=== PATIENT | male | born 1965 | race Caucasian/White ===

== ENCOUNTER 2017-03-12 03:05 | Inpatient (IN) | payer MEDICAID ==
[2017-03-12] VITALS (7 sets, daily range): BP systolic 148–175; BP diastolic 76–97; PULSE 95–120; RESP 18–22; TEMP 98.3–98.4; O2SAT 94–97
[~2017-03-12] VITALS: Ht 177.8 cm; Wt 94.2 kg
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
[2017-03-12] MEDS ORDERED: LORazepam 2 MG/ML VIAL IM ONE (03:30)
[2017-03-12] MEDS ORDERED: LORazepam 2 MG/ML VIAL IV PUSH ONE (03:30)
[2017-03-12 03:34] LABS: AUTOMATED NEUTROPHIL # 10.2 TH/MM3 (1.8-7.7); BASOPHIL % 0.2 % (0.0-2.0); EOSINOPHIL % 0.4 % (0.0-4.0); HEMATOCRIT 45.8 % (39.0-51.0); HEMO FLAGS DIFF FINAL; LYMPH % 11.3 % (9.0-44.0); LYMPHOCYTE # 1.4 TH/MM3 (1.0-4.8); MEAN CORPUSCULAR HEMOGLOBIN 29.8 PG (27.0-34.0); MEAN CORPUSCULAR HGB CONC 33.8 % (32.0-36.0); MONO % 5.1 % (0.0-8.0); PLATELET COUNT 240 TH/MM3 (150-450); RED CELL DISTRIBUTION WIDTH 13.1 % (11.6-17.2); WHITE BLOOD COUNT 12.3 TH/MM3 (4.0-11.0)
[2017-03-12 03:49] LABS: ALT (GPT) 21 U/L (12-78); ANION GAP 11 MEQ/L (5-15); AST (GOT) 17 U/L (15-37); BICARBONATE 21.4 MEQ/L (21.0-32.0); BLOOD UREA NITROGEN 21 MG/DL (7-18); CHLORIDE 110 MEQ/L (98-107); GLOMERULAR FILTRATION RATE 97 ML/MIN (>89); SODIUM (NA) 142 MEQ/L (136-145)
[2017-03-12 03:52] LABS: ALKALINE PHOSPHATASE 125 U/L (45-117); TOTAL BILIRUBIN ADULT 0.4 MG/DL (0.2-1.0)
[2017-03-12 04:20] LABS: AMPHETAMINE, URINE NEG (NEG); BARBITURATES, URINE NEG (NEG); COCAINE, URINE NEG (NEG)
[2017-03-12] MEDS ORDERED: ATOR40TA16 PO (09:53)
[2017-03-12] MEDS ORDERED: B-COCAP9 PO (09:53)
[2017-03-12] MEDS ORDERED: LISI40TA PO (09:53)
[2017-03-12] MEDS ORDERED: METF500T PO (09:53)
[2017-03-12] MEDS ORDERED: ASPI-110 PO (09:53)
[2017-03-12] MEDS ORDERED: AMLO10TA2 PO (09:53)
[2017-03-12] MEDS ORDERED: LISINOPRIL 20 MG TAB PO SCH (12:15)
[2017-03-12] MEDS ORDERED: metFORMIN HCL 500 MG TAB PO ONE (12:15)
[2017-03-12] MEDS ORDERED: ACETAMINOPHEN 325 MG TAB PO PRN (17:00)
[2017-03-12] MEDS ORDERED: LORazepam 2 MG/ML VIAL IM PRN ×2 (17:00)
[2017-03-12] MEDS ORDERED: ALUMINUM/MAGNESIUM/SIMETH 30 ML CUP PO PRN (17:00)
[2017-03-12] MEDS ORDERED: MAGNESIUM HYDROXIDE SUSP 30 ML CUP PO PRN (17:00)
[2017-03-12] MEDS ORDERED: LORazepam 1 MG TAB PO PRN (17:00)
[2017-03-12] MEDS ORDERED: LORazepam 0.5 MG TAB PO PRN (17:00)
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
[2017-03-12] MEDS: metFORMIN HCL 500 MG TAB PO SCH (19:28)
[2017-03-12] MEDS: ASPIRIN EC 81 MG TABEC PO SCH (19:28)
[2017-03-12] MEDS: ATORVASTATIN 40 MG TAB PO SCH (21:00)
[2017-03-12] MEDS: REMOVE OLD NICODERM (NICOTINE) PATCH T-DERMAL SCH (21:00)
[2017-03-13 05:42] VITALS: BP 163/86; PULSE 95; RESP 18; TEMP 97.8; O2SAT 97
[2017-03-13 06:58] LABS: AUTOMATED NEUTROPHIL # 4.5 TH/MM3 (1.8-7.7); BASOPHIL % 0.2 % (0.0-2.0); EOSINOPHIL # 0.1 TH/MM3 (0-0.4); EOSINOPHIL % 0.9 % (0.0-4.0); HEMATOCRIT 43.7 % (39.0-51.0); HEMO FLAGS DIFF FINAL; LYMPH % 34.2 % (9.0-44.0); LYMPHOCYTE # 2.7 TH/MM3 (1.0-4.8); MEAN CELL VOLUME 87.8 FL (80.0-100.0); MEAN CORPUSCULAR HEMOGLOBIN 29.7 PG (27.0-34.0); MEAN CORPUSCULAR HGB CONC 33.9 % (32.0-36.0); MONO % 7.3 % (0.0-8.0); NEUT % 57.4 % (16.0-70.0); PLATELET COUNT 220 TH/MM3 (150-450); RED BLOOD COUNT 4.98 MIL/MM3 (4.50-5.90); RED CELL DISTRIBUTION WIDTH 12.8 % (11.6-17.2); WHITE BLOOD COUNT 7.8 TH/MM3 (4.0-11.0)
[2017-03-13 08:03] LABS: ANION GAP 8 MEQ/L (5-15); AST (GOT) 12 U/L (15-37); BICARBONATE 28.1 MEQ/L (21.0-32.0); BLOOD UREA NITROGEN 11 MG/DL (7-18); CHLORIDE 105 MEQ/L (98-107); GLOMERULAR FILTRATION RATE 127 ML/MIN (>89); POTASSIUM 3.9 MEQ/L (3.5-5.1); SODIUM (NA) 141 MEQ/L (136-145)
[2017-03-13 08:11] LABS: ALKALINE PHOSPHATASE 110 U/L (45-117); ALT (GPT) 18 U/L (12-78); HDL CHOLESTEROL 49.3 MG/DL (40.0-60.0); LDL CHOLESTEROL 50 MG/DL (0-99); TOTAL BILIRUBIN ADULT 0.7 MG/DL (0.2-1.0)
[2017-03-13 08:33] LABS: HEMOGLOBIN A1a 0.8 %; HEMOGLOBIN A1b 1.8 %; HEMOGLOBIN Ao 84.9 %; HEMOGLOBIN LA1C 2.3 %; HEMOGLOBIN P3 5.4 %
[2017-03-13] MEDS: ASPIRIN EC 81 MG TABEC PO SCH (08:47)
[2017-03-13] MEDS: metFORMIN HCL 500 MG TAB PO SCH ×2 (08:47→16:47)
[2017-03-13] MEDS: LISINOPRIL 20 MG TAB PO SCH (08:48)
[2017-03-13] MEDS: NICOTINE 21 MG/24 HR PATCH T-DERMAL SCH (09:00)
--- NOTE | 2017-03-13 15:36 | HHI.PYPN ---
Subjective Remarks Patient was seen today for psychiatric reevaluation, he is found in his room laying in his bed, distant, disengage, he reports okay mood, he says that he doesn't know what is the reason he is here, seems to be irritable, denies suicidal and homicidal ideation, denies visual and auditory hallucinations. Patient is oriented 3, compliant with medications, no agitation or aggressive behavior reports. Review of Systems Other No somatic complaints Objective Alert: Yes [place]: Person, Place, Date Mood: Angry, Oppositional Affect: Other (irritable) Memory Intact: Immediate, Recent, Remote Hallucinations: Other (he denies) Delusions: No Delusion Type: Other Suicidal: Ideation (he denies) Homicidal: Ideation (he denies) Insight/Judgment Fair Labs Test 03/13/17 06:20 White Blood Count 7.8 TH/MM3 Red Blood Count 4.98 MIL/MM3 Hemoglobin 14.8 GM/DL Hematocrit 43.7 % Mean Corpuscular Volume 87.8 FL Mean Corpuscular Hemoglobin 29.7 PG Mean Corpuscular Hemoglobin 33.9 % Concent Red Cell Distribution Width 12.8 % Platelet Count 220 TH/MM3 Mean Platelet Volume 7.7 FL Neutrophils (%) (Auto) 57.4 % Lymphocytes (%) (Auto) 34.2 % Monocytes (%) (Auto) 7.3 % Eosinophils (%) (Auto) 0.9 % Basophils (%) (Auto) 0.2 % Neutrophils # (Auto) 4.5 TH/MM3 Lymphocytes # (Auto) 2.7 TH/MM3 Monocytes # (Auto) 0.6 TH/MM3 Eosinophils # (Auto) 0.1 TH/MM3 Basophils # (Auto) 0.0 TH/MM3 CBC Comment DIFF FINAL Differential Comment Sodium Level 141 MEQ/L Potassium Level 3.9 MEQ/L Chloride Level 105 MEQ/L Carbon Dioxide Level 28.1 MEQ/L Anion Gap 8 MEQ/L Blood Urea Nitrogen 11 MG/DL Creatinine 0.66 MG/DL Estimat Glomerular Filtration 127 ML/MIN Rate Random Glucose 146 MG/DL Hemoglobin A1c 5.8 % Calcium Level 9.2 MG/DL Total Bilirubin 0.7 MG/DL Aspartate Amino Transf 12 U/L (AST/SGOT) Alanine Aminotransferase 18 U/L (ALT/SGPT) Alkaline Phosphatase 110 U/L Total Protein 7.2 GM/DL Albumin 3.8 GM/DL Triglycerides Level 127 MG/DL Cholesterol Level 125 MG/DL LDL Cholesterol 50 MG/DL HDL Cholesterol 49.3 MG/DL Cholesterol/HDL Ratio 2.53 RATIO Thyroid Stimulating Hormone 1.150 uIU/ML 3rd Gen Vitals/IOs Vital Signs Date Time Temp Pulse Resp B/P Pulse Ox O2 Delivery O2 Flow Rate FiO2 03/13/17 05:42 97.8 95 18 163/86 97 03/12/17 14:00 Room Air Intake and Output 03/12/17 03/12/17 03/13/17 08:00 16:00 00:00 Intake Total 120 ml Output Total 250 ml Balance -130 ml Assessment & Plan Problem List: (1) Adjustment disorder with mixed disturbance of emotions and conduct ICD Code: F43.25 Assessment & Plan Estimated LOS: days Justification for Cont. Inpt. Patient is to continue psychiatric hospitalization for observation of mood and became Rick Medina MD March 13, 2017 15:36
[2017-03-13 18:13] VITALS: BP 124/78; PULSE 92; RESP 18; TEMP 97.5; O2SAT 94
[2017-03-13] MEDS: REMOVE OLD NICODERM (NICOTINE) PATCH T-DERMAL SCH (21:00)
[2017-03-13] MEDS: ATORVASTATIN 40 MG TAB PO SCH (21:00)
[2017-03-14 06:26] VITALS: BP 112/66; PULSE 69; RESP 18; TEMP 97.2; O2SAT 92
[2017-03-14] MEDS: ASPIRIN EC 81 MG TABEC PO SCH (08:25)
[2017-03-14] MEDS: metFORMIN HCL 500 MG TAB PO SCH ×2 (08:25→17:36)
[2017-03-14] MEDS: LISINOPRIL 20 MG TAB PO SCH (08:26)
[2017-03-14] MEDS: NICOTINE 21 MG/24 HR PATCH T-DERMAL SCH (08:26)
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
[2017-03-14] MEDS: ESCITALOPRAM OXALATE 10 MG TAB PO SCH (14:55)
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
[2017-03-14 17:12] VITALS: BP 107/72; PULSE 99; RESP 18; TEMP 97.1; O2SAT 93
[2017-03-14] MEDS: ATORVASTATIN 40 MG TAB PO SCH (21:00)
[2017-03-14] MEDS: REMOVE OLD NICODERM (NICOTINE) PATCH T-DERMAL SCH (21:00)
[2017-03-15 06:07] VITALS: BP 116/79; PULSE 87; RESP 16; TEMP 97.8; O2SAT 93
[2017-03-15] MEDS: NICOTINE 21 MG/24 HR PATCH T-DERMAL SCH (09:00)
[2017-03-15] MEDS: ASPIRIN EC 81 MG TABEC PO SCH (09:47)
[2017-03-15] MEDS: metFORMIN HCL 500 MG TAB PO SCH (09:47)
[2017-03-15] MEDS: LISINOPRIL 20 MG TAB PO SCH (09:48)
[2017-03-15] MEDS: ESCITALOPRAM OXALATE 10 MG TAB PO SCH (09:48)
[2017-03-15] MEDS ORDERED: AMLO10 PO (10:52)
[2017-03-15] MEDS ORDERED: ATOR40TA16 PO (10:52)
[2017-03-15] MEDS ORDERED: METF500 PO (10:52)
[2017-03-15] MEDS ORDERED: LISI40TA PO (10:52)
[2017-03-15] MEDS ORDERED: ASPI81TA11 PO (10:52)
[2017-03-15] MEDS ORDERED: ESCI10TA PO (10:52)
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
== END 2017-03-15 13:20 | DRG 882 ==
LOC: NEPE 03:05 → NEDA 16:52 → H260 19:51
PROVIDERS: ADMIT Psychiatry & Neurology Psychiatry; ATTEND Psychiatry & Neurology Psychiatry
DX: F43.25 Adjustment disorder with mixed disturbance of emotions and conduct (principal); F32.9 Major depressive disorder, single episode, unspecified; Z86.73 Personal history of transient ischemic attack (TIA), and cerebral infarction without residual deficits; E66.3 Overweight
CPT/HCPCS: 80053; 80061; 80307; 83036; 84443; 85025; 96372; J2060